=== PATIENT | female | born 1995 | race Caucasian/White ===

== ENCOUNTER 2024-09-13 13:39 | Outpatient (CLI) | payer OTHER, SELFPAY | END 2024-09-13 13:40 | disposition home or self-care (01) | PROVIDERS: Visit Provider Registered Nurse | DX: I10 Essential (primary) hypertension (principal); Z13.6 Encounter for screening for cardiovascular disorders; Z13.29 Encounter for screening for other suspected endocrine disorder | CPT/HCPCS: 80053; 80061; 84443 ==

== ENCOUNTER 2024-09-21 15:23 | Outpatient (CLI) | payer OTHER, BC, SELFPAY ==
--- NOTE | 2024-09-21 15:30 | CRLHL7_ITS ---
For Patients: As a result of the 21st Century Cures Act, medical imaging exams and procedure reports are released immediately into your electronic medical record. You may view this report before your referring provider. If you have questions, please contact your health care provider. EXAM: MRI OF THE LEFT KNEE, WITHOUT CONTRAST CLINICAL INDICATION: Left knee pain. COMPARISON PLAIN FILMS: None available at time of interpretation. COMPARISON CROSS-SECTIONAL IMAGING STUDIES: None available at time of interpretation. TECHNICAL: Axial, sagittal and coronal T1, PD, PD FS and T2 FS images. Knee coil. FINDINGS: MEDIAL COMPARTMENT: Medial Meniscus: Normal size and morphology without tear. Articular Cartilage: Articular surfaces appear smooth without focal articular cartilage defect or subchondral marrow changes. - LATERAL COMPARTMENT: Lateral Meniscus: Normal size and morphology without tear. Articular Cartilage: Articular surfaces appear smooth without focal articular cartilage defect or subchondral marrow changes. - PATELLOFEMORAL COMPARTMENT: Articular Cartilage: Mild increased signal without thinning or fissuring in the medial patellar facet articular cartilage (grade 1). - CRUCIATE LIGAMENTS: Anterior Cruciate Ligament: Normal. Posterior Cruciate Ligament: Normal. - MEDIAL COLLATERAL LIGAMENT AND POSTEROMEDIAL CORNER COMPLEX: Medial Collateral Ligament: Normal. Medial Head of the Gastrocnemius and Semimembranosus Tendons: Normal. - LATERAL COLLATERAL LIGAMENT COMPLEX AND POSTEROLATERAL CORNER COMPLEX: Fibular Collateral Ligament: Normal. Distal Biceps Femoris Tendon Complex: Normal. Iliotibial Band: Normal. Popliteus Tendon: Normal. Posterolateral Corner Capsule: Normal. - EXTENSOR MECHANISM: Distal Quadriceps Tendon: Normal. Patellar Tendon: Normal. Medial Patellar Retinaculum and Medial Patellofemoral Ligament: Normal. Lateral Patellar Retinaculum: Normal. Normal patellar alignment. No patella gail. Normal trochlear depth. Normal lateral trochlear inclination. - JOINT SPACE: Effusion: No knee joint effusion or popliteal cyst. Joint Bodies: None seen. - OSSEOUS STRUCTURES: No fracture, marrow edema or marrow replacement process. - PERIARTICULAR SOFT TISSUES: Periarticular Cysts or Ganglia: None. Bursae: No prepatellar, superficial infrapatellar, deep infrapatellar, pes anserinus or semimembranosus/MCL bursitis. Musculature: No muscle atrophy or muscle edema. Subcutaneous and Soft Tissues: No subcutaneous or soft tissue mass, edema or fluid collection. Neurovascular Structures: Normal. IMPRESSION: 1. 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 2. Remainder unremarkable. Dictated by Abelardo Murray MD @ 09/24/2024 9:40:00 AM (Electronically Signed)
== END 2024-09-21 15:24 | disposition home or self-care (01) ==
LOC: MRI 15:24
PROVIDERS: PCP Registered Nurse; Visit Provider Registered Nurse
DX: M25.562 Pain in left knee (principal); M94.262 Chondromalacia, left knee
CPT/HCPCS: 73721

== ENCOUNTER 2024-10-04 11:30 | Outpatient (CLI) | payer OTHER, BC, SELFPAY ==
[2024-10-06 04:55] LABS: HPV Source Cervix; HPV, High Risk by TMA Not Detected
== END 2024-10-04 11:31 | disposition home or self-care (01) ==
PROVIDERS: PCP Registered Nurse; Visit Provider Physician Assistant
DX: Z12.4 Encounter for screening for malignant neoplasm of cervix (principal); Z11.51 Encounter for screening for human papillomavirus (HPV)
CPT/HCPCS: 87624; 87625; 88141; 88142

== ENCOUNTER 2025-03-21 16:31 | Outpatient (CLI) | payer OTHER, SELFPAY | END 2025-03-21 16:32 | disposition home or self-care (01) | PROVIDERS: PCP Nurse Practitioner Family; Visit Provider Nurse Practitioner Family | DX: I10 Essential (primary) hypertension (principal); O92.6 Galactorrhea; R53.83 Other fatigue; Z79.899 Other long term (current) drug therapy | CPT/HCPCS: 80053; 82306; 84146; 84443; 85025; 86376 ==

== ENCOUNTER 2025-04-04 14:37 | Outpatient (CLI) | payer OTHER, SELFPAY ==
--- NOTE | 2025-04-04 14:45 | CRLHL7_ITS ---
For Patients: As a result of the Century Cures Act, medical imaging exams and procedure reports are released immediately into your electronic medical record. You may view this report before your referring provider. If you have questions, please contact your health care provider. Indication: Visual disturbance. Technique: Noncontrast sagittal T1, axial FLAIR, T2, diffusion weighted sequences are provided. No comparisons. Findings: The ventricles, sulci and gyri are normal size, shape and contour for age. The midline structures are centrally located with no evidence of shift. There are no suspicious intra or extra-axial fluid collections. No region of restricted diffusion. Expected flow voids in the cavernous carotids and basilar artery. The globes bilaterally are within normal limits. Impression: 1. No radiographic evidence of acute intracranial abnormalities. Dictated by Edwin Vela MD @ 04/04/2025 8:21:03 PM (Electronically Signed)
== END 2025-04-04 14:38 | disposition home or self-care (01) ==
LOC: MRI 14:39
PROVIDERS: PCP Nurse Practitioner Family; Visit Provider Nurse Practitioner Family
DX: H53.9 Unspecified visual disturbance (principal); R53.83 Other fatigue
CPT/HCPCS: 70551

== ENCOUNTER 2025-04-29 14:02 | Outpatient (CLI) | payer OTHER, SELFPAY | END 2025-04-29 14:03 | disposition home or self-care (01) | PROVIDERS: PCP Nurse Practitioner Family; Visit Provider Internal Medicine Nephrology | DX: I10 Essential (primary) hypertension (principal); R53.83 Other fatigue; R00.0 Tachycardia, unspecified; R29.898 Other symptoms and signs involving the musculoskeletal system | CPT/HCPCS: 82043; 82088; 82570; 83835; 84244 ==

== ENCOUNTER 2025-05-31 10:02 | Outpatient (CLI) | payer OTHER, SELFPAY ==
--- NOTE | 2025-05-31 10:15 | CRLHL7_ITS ---
For Patients: As a result of the Century Cures Act, medical imaging exams and procedure reports are released immediately into your electronic medical record. You may view this report before your referring provider. If you have questions, please contact your health care provider. Indication: Essential hypertension Technique: Grayscale, color flow and spectral Doppler analysis of the kidneys and renal arteries performed bilaterally. Findings: No hydronephrosis. Renal cortex normal bilaterally. The resistive indices measurements appear falsely decreased. Additionally, the renal artery velocity measurements on the right appear falsely elevated. Renal artery ratio 1.9 on the right and 1.3 on the left. IMPRESSION: No evidence of renal artery hypertension. Dictated by Bayron Mckeon MD @ 06/03/2025 11:12:37 AM (Electronically Signed)
== END 2025-05-31 10:03 | disposition home or self-care (01) ==
PROVIDERS: PCP Nurse Practitioner Family; Visit Provider Internal Medicine Nephrology
DX: I10 Essential (primary) hypertension (principal)
CPT/HCPCS: 76775; 93975